=== PATIENT | female | born 1945 | race Caucasian/White ===

== ENCOUNTER 2018-02-07 21:18 | Inpatient (IN) | payer MEDICARE, OTHER, BC ==
[2018-02-07] MEDS: BRINZOLAMIDE 1 % OPHTH SUSP (AZOPT) 10ML OU (21:00)
[2018-02-07 21:52] LABS: BEDSIDE GLUCOSE 120 MG/DL (83-110)
[2018-02-07] MEDS: MORPHINE 2 MG/ML 1ML SYRINGE (J2270) IV ×2 (21:57→23:14)
[2018-02-07] MEDS: ONDANSETRON 4MG/2ML VIAL (J2405) IV (21:57)
[2018-02-07 21:59] LABS: BASO % 0.3 % (0.0-1.0); EOS # 0.1 10^3/uL (0.0-0.50); EOS % 0.7 % (0.0-3.0); HEMATOCRIT 34.9 % (36.0-47.0); HEMOGLOBIN 11.8 g/dl (12.0-15.5); IMMATURE GRANULOCYTE % 0.7 % (0-3.0); LYMPH # 1.3 10^3/uL (1.5-4.5); LYMPH % 14.6 % (24.0-44.0); MEAN CORPUSCULAR HEMOGLOBIN 32.2 pg (27.0-33.0); MEAN CORPUSCULAR HGB CONC 33.8 g/dl (32.0-36.5); MEAN CORPUSCULAR VOLUME 95.4 fl (80.0-96.0); MONO # 0.4 10^3/uL (0.0-0.8); MONO % 4.6 % (0.0-5.0); NEUTROPHILS % 79.1 % (36.0-66.0); PLATELET COUNT, AUTOMATED 268 10^3/uL (150-450); RED BLOOD COUNT 3.66 10^6/uL (4.00-5.40); RED CELL DISTRIBUTION WIDTH 13.2 % (11.5-14.5); WHITE BLOOD COUNT 8.9 10^3/uL (4.0-10.0)
[2018-02-07 22:10] LABS: INR 1.08; PROTHROMBIN TIME 14.2 SECONDS (12.1-14.4)
[2018-02-07 22:26] LABS: ANION GAP 9 MEQ/L (8-16); BLOOD UREA NITROGEN 13 MG/DL (7-18); CALCIUM LEVEL 8.2 MG/DL (8.8-10.2); CARBON DIOXIDE LEVEL 27 MEQ/L (21-32); CHLORIDE LEVEL 103 MEQ/L (98-107); CPK CREATINE PHOSPHOKINASE 152 U/L (26-192); CREATININE FOR GFR 0.67 MG/DL (0.55-1.30); ETHYL ALCOHOL (ETHANOL) 0.185 % (0.000-0.010); GLOMERULAR FILTRATION RATE > 60.0 (>39); GLUCOSE, FASTING 122 MG/DL (70-100); POTASSIUM SERUM 3.3 MEQ/L (3.5-5.1); SODIUM LEVEL 139 MEQ/L (136-145); TROPONIN I < 0.02 NG/ML (< 0.10)
[2018-02-07 22:32] LABS: MB/CK RELATIVE INDEX 1.31 (< OR =4)
[2018-02-07 23:34] LABS: KETONE, URINE AUTO RFX NEGATIVE (NEGATIVE); LEUKOCYTE ESTERASE UR AUTO RFX NEGATIVE (NEGATIVE); NITRITE, URINE AUTO RFX NEGATIVE (NEGATIVE); RBC, URINE AUTO RFX 0 /HPF (0-3); SPECIFIC GRAVITY UR AUTO RFX 1.003 (1.002-1.035); SQUAM EPITHELIAL CELL UR AURFX 0 /HPF (0-6); WBC, URINE AUTO RFX 0 /HPF (0-3)
[2018-02-07 23:41] LABS: AMPHETAMINES LEVEL URINE NEGATIVE (NEGATIVE); BARBITURATES URINE NEGATIVE (NEGATIVE); BENZODIAZEPINES URINE NEGATIVE (NEGATIVE); CANNABINOIDS URINE NEGATIVE (NEGATIVE); COCAINE METABOLITE URINE NEGATIVE (NEGATIVE); METHADONE URINE NEGATIVE (NEGATIVE); OPIATES URINE POSITIVE (NEGATIVE); PHENCYCLIDINE URINE NEGATIVE (NEGATIVE)
[2018-02-07] MEDS ORDERED: LORATADINE 10 MG TAB PO (23:45)
[2018-02-07] MEDS ORDERED: ONDANSETRON 4MG/2ML VIAL (J2405) IV (23:45)
[2018-02-08] MEDS: POTASSIUM CHLORIDE 10 MEQ SR TABLET PO (01:36)
[2018-02-08] MEDS: NS 1,000 ML IV ×2 (01:36→12:01)
[2018-02-08] MEDS: FOLIC ACID 1 MG TAB PO ×2 (03:00→09:05)
[2018-02-08] MEDS: THIAMINE 100 MG TAB PO ×2 (03:00→09:05)
[2018-02-08] MEDS: MORPHINE 4 MG/ML 1ML VIAL/SYRINGE (J2270) IV ×3 (03:01→12:00)
[2018-02-08 05:31] LABS: HEMATOCRIT 33.1 % (36.0-47.0); HEMOGLOBIN 11.2 g/dl (12.0-15.5); MEAN CORPUSCULAR HEMOGLOBIN 31.6 pg (27.0-33.0); MEAN CORPUSCULAR HGB CONC 33.8 g/dl (32.0-36.5); MEAN CORPUSCULAR VOLUME 93.5 fl (80.0-96.0); PLATELET COUNT, AUTOMATED 263 10^3/uL (150-450); RED BLOOD COUNT 3.54 10^6/uL (4.00-5.40); RED CELL DISTRIBUTION WIDTH 13.2 % (11.5-14.5); WHITE BLOOD COUNT 6.7 10^3/uL (4.0-10.0)
[2018-02-08 05:50] LABS: ANION GAP 6 MEQ/L (8-16); BLOOD UREA NITROGEN 10 MG/DL (7-18); CALCIUM LEVEL 8.2 MG/DL (8.8-10.2); CARBON DIOXIDE LEVEL 27 MEQ/L (21-32); CHLORIDE LEVEL 109 MEQ/L (98-107); CREATININE FOR GFR 0.59 MG/DL (0.55-1.30); GLOMERULAR FILTRATION RATE > 60.0 (>39); GLUCOSE, FASTING 107 MG/DL (70-100); POTASSIUM SERUM 4.5 MEQ/L (3.5-5.1); SODIUM LEVEL 142 MEQ/L (136-145)
[2018-02-08] MEDS: HEPARIN SOD (PORCINE) 5000 UNITS/ML VIAL SC (05:55)
[2018-02-08] MEDS: BRINZOLAMIDE 1 % OPHTH SUSP (AZOPT) 10ML OU ×2 (09:05→22:48)
[2018-02-08] MEDS: LISINOPRIL *2.5 MG* TAB PO (09:05)
[2018-02-08] MEDS: MULTIVITAMINS/MINERALS THERAP 1 TAB PO (09:05)
[2018-02-08] MEDS ORDERED: ceFAZolin 2 GM/D5W 50 ML IV BAG (J0690 PER 500MG) As Ordered (14:45)
[2018-02-08] MEDS ORDERED: LIDOCAINE 2% INJ 100 MG/5 ML SDV (FOR ANES.) As Ordered (15:34)
[2018-02-08] MEDS ORDERED: fentaNYL 100 MCG/2 ML INJECTION (J3010) As Ordered (15:34)
[2018-02-08] MEDS ORDERED: MIDAZOLAM INJ 2 MG/2 ML VIAL (J2250) As Ordered (15:34)
[2018-02-08] MEDS ORDERED: PROPOFOL 200 MG/20 ML VIAL As Ordered (15:34)
[2018-02-08] MEDS ORDERED: KETAMINE HCL 200 MG/20 ML VIAL As Ordered (15:34)
[2018-02-08] MEDS ORDERED: BUPIVACAINE HCL 0.5% 30 ML VIAL As Ordered (15:34)
[2018-02-08] MEDS ORDERED: PHENYLephrine HCL 500 MCG/5 ML (100MCG/ML) SYRINGE (J2370) As Ordered (15:43)
[2018-02-08] MEDS ORDERED: ePHEDrine SULFATE 25 MG/5 ML(5MG/ML) SYRINGE As Ordered (15:53)
[2018-02-08] MEDS: EPINEPHrine INJ 1 MG/ML 1ML AMP As Ordered (16:09)
[2018-02-08] MEDS: ceFAZolin 1GM INJ (J0690 PER 500MG) As Ordered (16:09)
[2018-02-08] MEDS: BUPIVACAINE HCL 0.25% 30 ML VIAL As Ordered (17:50)
[2018-02-08] MEDS ORDERED: ONDANSETRON 4MG/2ML VIAL (J2405) IV (18:30)
[2018-02-08] MEDS ORDERED: fentaNYL 100 MCG/2 ML INJECTION (J3010) IV (18:30)
[2018-02-08] MEDS: MIRALAX *UNIT DOSE* 17GM PACKET PO (20:25)
[2018-02-08] MEDS: PERCOCET 5MG/325MG TAB PO (20:25)
[2018-02-08] MEDS: ceFAZolin SOD 1 GM in D5W MINI-BAG PLUS 50 ML IV (22:49)
[2018-02-09] MEDS: PERCOCET 5MG/325MG TAB PO ×3 (03:03→16:33)
[2018-02-09 05:26] LABS: HEMATOCRIT 31.4 % (36.0-47.0); HEMOGLOBIN 10.4 g/dl (12.0-15.5); MEAN CORPUSCULAR HGB CONC 33.1 g/dl (32.0-36.5); MEAN CORPUSCULAR VOLUME 96.6 fl (80.0-96.0); PLATELET COUNT, AUTOMATED 233 10^3/uL (150-450); RED BLOOD COUNT 3.25 10^6/uL (4.00-5.40); RED CELL DISTRIBUTION WIDTH 13.4 % (11.5-14.5); WHITE BLOOD COUNT 13.3 10^3/uL (4.0-10.0)
[2018-02-09 05:50] LABS: ANION GAP 10 MEQ/L (8-16); BLOOD UREA NITROGEN 9 MG/DL (7-18); CALCIUM LEVEL 8.1 MG/DL (8.8-10.2); CARBON DIOXIDE LEVEL 23 MEQ/L (21-32); CHLORIDE LEVEL 104 MEQ/L (98-107); CREATININE FOR GFR 0.52 MG/DL (0.55-1.30); GLOMERULAR FILTRATION RATE > 60.0 (>39); GLUCOSE, FASTING 84 MG/DL (70-100); SODIUM LEVEL 137 MEQ/L (136-145)
[2018-02-09] MEDS: ceFAZolin SOD 1 GM in D5W MINI-BAG PLUS 50 ML IV (06:20)
[2018-02-09] MEDS: MOM 30ML SUSPENSION UDC PO (09:00)
[2018-02-09] MEDS: MIRALAX *UNIT DOSE* 17GM PACKET PO (09:00)
[2018-02-09] MEDS: SENOKOT S TAB PO ×2 (09:00→21:08)
[2018-02-09] MEDS ORDERED: MIRALAX *UNIT DOSE* 17GM PACKET PO (09:00)
[2018-02-09] MEDS: MULTIVITAMINS/MINERALS THERAP 1 TAB PO (10:03)
[2018-02-09] MEDS: LISINOPRIL *2.5 MG* TAB PO (10:04)
[2018-02-09] MEDS: BRINZOLAMIDE 1 % OPHTH SUSP (AZOPT) 10ML OU ×2 (10:08→22:54)
[2018-02-09] MEDS ORDERED: SLF 3 ML SYR IV (10:45)
[2018-02-09] MEDS: SLF 3 ML SYR IV ×2 (14:41→22:06)
[2018-02-09] MEDS: LR 1,000 ML IV (14:59)
[2018-02-09] MEDS ORDERED: OXAZEPAM 10 MG CAP PO (15:15)
[2018-02-09] MEDS: RIVAROXABAN 10 MG TAB (XARELTO) PO (17:22)
[2018-02-09] MEDS: LATANOPROST 0.005% OPHTH SOLN 2.5 ML OU (21:08)
[2018-02-10] MEDS: PERCOCET 5MG/325MG TAB PO ×4 (02:28→21:05)
[2018-02-10] MEDS: SLF 3 ML SYR IV ×4 (05:51→22:00)
[2018-02-10 06:11] LABS: HEMATOCRIT 31.1 % (36.0-47.0); HEMOGLOBIN 10.3 g/dl (12.0-15.5); MEAN CORPUSCULAR HEMOGLOBIN 31.4 pg (27.0-33.0); MEAN CORPUSCULAR HGB CONC 33.1 g/dl (32.0-36.5); MEAN CORPUSCULAR VOLUME 94.8 fl (80.0-96.0); PLATELET COUNT, AUTOMATED 246 10^3/uL (150-450); RED BLOOD COUNT 3.28 10^6/uL (4.00-5.40); RED CELL DISTRIBUTION WIDTH 13.4 % (11.5-14.5); WHITE BLOOD COUNT 11.3 10^3/uL (4.0-10.0)
[2018-02-10 06:29] LABS: ANION GAP 6 MEQ/L (8-16); BLOOD UREA NITROGEN 13 MG/DL (7-18); CALCIUM LEVEL 8.6 MG/DL (8.8-10.2); CARBON DIOXIDE LEVEL 30 MEQ/L (21-32); CHLORIDE LEVEL 100 MEQ/L (98-107); CREATININE FOR GFR 0.63 MG/DL (0.55-1.30); GLOMERULAR FILTRATION RATE > 60.0 (>39); GLUCOSE, FASTING 121 MG/DL (70-100); POTASSIUM SERUM 4.1 MEQ/L (3.5-5.1); SODIUM LEVEL 136 MEQ/L (136-145)
[2018-02-10] MEDS: SENOKOT S TAB PO ×2 (08:32→21:03)
[2018-02-10] MEDS: MULTIVITAMINS/MINERALS THERAP 1 TAB PO (08:32)
[2018-02-10] MEDS: THIAMINE 100 MG TAB PO (08:32)
[2018-02-10] MEDS: FOLIC ACID 1 MG TAB PO (08:32)
[2018-02-10] MEDS: LISINOPRIL *2.5 MG* TAB PO ×2 (08:34→09:00)
[2018-02-10] MEDS: BRINZOLAMIDE 1 % OPHTH SUSP (AZOPT) 10ML OU ×2 (08:35→21:03)
[2018-02-10] MEDS: MOM 30ML SUSPENSION UDC PO (08:35)
[2018-02-10] MEDS: MIRALAX *UNIT DOSE* 17GM PACKET PO (08:35)
[2018-02-10] MEDS: RIVAROXABAN 10 MG TAB (XARELTO) PO (17:51)
[2018-02-10] MEDS: LATANOPROST 0.005% OPHTH SOLN 2.5 ML OU (21:05)
[2018-02-11] MEDS: PERCOCET 5MG/325MG TAB PO ×3 (05:58→20:13)
[2018-02-11] MEDS: SLF 3 ML SYR IV ×3 (06:00→20:13)
[2018-02-11 06:57] LABS: HEMATOCRIT 30.7 % (36.0-47.0); HEMOGLOBIN 10.1 g/dl (12.0-15.5); MEAN CORPUSCULAR HEMOGLOBIN 31.4 pg (27.0-33.0); MEAN CORPUSCULAR HGB CONC 32.9 g/dl (32.0-36.5); MEAN CORPUSCULAR VOLUME 95.3 fl (80.0-96.0); PLATELET COUNT, AUTOMATED 271 10^3/uL (150-450); RED BLOOD COUNT 3.22 10^6/uL (4.00-5.40); RED CELL DISTRIBUTION WIDTH 13.3 % (11.5-14.5); WHITE BLOOD COUNT 8.5 10^3/uL (4.0-10.0)
[2018-02-11 07:13] LABS: ANION GAP 6 MEQ/L (8-16); BLOOD UREA NITROGEN 13 MG/DL (7-18); CALCIUM LEVEL 8.4 MG/DL (8.8-10.2); CARBON DIOXIDE LEVEL 29 MEQ/L (21-32); CHLORIDE LEVEL 102 MEQ/L (98-107); CREATININE FOR GFR 0.57 MG/DL (0.55-1.30); GLOMERULAR FILTRATION RATE > 60.0 (>39); GLUCOSE, FASTING 127 MG/DL (70-100); POTASSIUM SERUM 3.8 MEQ/L (3.5-5.1); SODIUM LEVEL 137 MEQ/L (136-145)
[2018-02-11] MEDS ORDERED: FLEET ENEMA PR (08:30)
[2018-02-11] MEDS ORDERED: BISACODYL 5 MG TAB PO (08:30)
[2018-02-11] MEDS: MOM 30ML SUSPENSION UDC PO (09:00)
[2018-02-11] MEDS: THIAMINE 100 MG TAB PO (09:37)
[2018-02-11] MEDS: MULTIVITAMINS/MINERALS THERAP 1 TAB PO (09:37)
[2018-02-11] MEDS: MIRALAX *UNIT DOSE* 17GM PACKET PO (09:37)
[2018-02-11] MEDS: SENOKOT S TAB PO ×2 (09:37→20:13)
[2018-02-11] MEDS: FOLIC ACID 1 MG TAB PO (09:37)
[2018-02-11] MEDS: LISINOPRIL *2.5 MG* TAB PO (09:38)
[2018-02-11] MEDS: BRINZOLAMIDE 1 % OPHTH SUSP (AZOPT) 10ML OU ×2 (09:38→20:12)
[2018-02-11] MEDS: RIVAROXABAN 10 MG TAB (XARELTO) PO (17:30)
[2018-02-11] MEDS: LATANOPROST 0.005% OPHTH SOLN 2.5 ML OU (20:12)
[2018-02-12] MEDS: PERCOCET 5MG/325MG TAB PO ×4 (06:02→21:30)
[2018-02-12] MEDS: SLF 3 ML SYR IV ×3 (06:03→21:30)
[2018-02-12] MEDS: MOM 30ML SUSPENSION UDC PO (09:00)
[2018-02-12] MEDS: MIRALAX *UNIT DOSE* 17GM PACKET PO (09:00)
[2018-02-12] MEDS: SENOKOT S TAB PO ×2 (09:00→21:00)
[2018-02-12] MEDS: FOLIC ACID 1 MG TAB PO (10:26)
[2018-02-12] MEDS: MULTIVITAMINS/MINERALS THERAP 1 TAB PO (10:26)
[2018-02-12] MEDS: THIAMINE 100 MG TAB PO (10:26)
[2018-02-12] MEDS: LISINOPRIL *2.5 MG* TAB PO (10:26)
[2018-02-12] MEDS: BRINZOLAMIDE 1 % OPHTH SUSP (AZOPT) 10ML OU ×2 (10:27→21:30)
[2018-02-12] MEDS: RIVAROXABAN 10 MG TAB (XARELTO) PO (17:47)
[2018-02-12] MEDS: LATANOPROST 0.005% OPHTH SOLN 2.5 ML OU (21:30)
[2018-02-13] MEDS: SLF 3 ML SYR IV ×2 (06:00→14:00)
[2018-02-13] MEDS: PERCOCET 5MG/325MG TAB PO ×2 (06:06→11:52)
[2018-02-13] MEDS: MOM 30ML SUSPENSION UDC PO (09:00)
[2018-02-13] MEDS: MIRALAX *UNIT DOSE* 17GM PACKET PO (09:00)
[2018-02-13] MEDS: THIAMINE 100 MG TAB PO (09:17)
[2018-02-13] MEDS: MULTIVITAMINS/MINERALS THERAP 1 TAB PO (09:17)
[2018-02-13] MEDS: SENOKOT S TAB PO (09:17)
[2018-02-13] MEDS: FOLIC ACID 1 MG TAB PO (09:19)
[2018-02-13] MEDS: LISINOPRIL *2.5 MG* TAB PO (09:19)
[2018-02-13] MEDS: BRINZOLAMIDE 1 % OPHTH SUSP (AZOPT) 10ML OU (09:20)
== END 2018-02-13 14:35 | disposition home or self-care (01) | DRG 470 ==
LOC: M ED INP 02-08 00:10 → M PCU 02-08 01:15 → M MS5PR 02-10 17:33 → M MSPAV 02-09 15:21 → M ED 21:18
PROC: 0SRS039 Replacement of Left Hip Joint, Femoral Surface with Ceramic Synthetic Substitute, Cemented, Open Approach (ICD-10-PCS; principal; 2018-02-08 09:30)
DX: S72.012A Unspecified intracapsular fracture of left femur, initial encounter for closed fracture (principal); I10 Essential (primary) hypertension; H40.9 Unspecified glaucoma; F10.10 Alcohol abuse, uncomplicated; E87.6 Hypokalemia; Z90.49 Acquired absence of other specified parts of digestive tract; Z79.899 Other long term (current) drug therapy; Z88.8 Allergy status to other drugs, medicaments and biological substances; W01.0XXA Fall on same level from slipping, tripping and stumbling without subsequent striking against object, initial encounter; Y92.010 Kitchen of single-family (private) house as the place of occurrence of the external cause; Y93.89 Activity, other specified; K59.00 Constipation, unspecified